=== PATIENT | male | born 1995 | race Two or more races ===

== ENCOUNTER 2016-05-31 22:14 | Observation (INO) | payer OTHER ==
[2016-05-31 22:24] VITALS: BMI 26.2
[2016-05-31] MEDS ORDERED: RAPID SEQUENCE INTUBATION KIT NR ONE (23:06)
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
[2016-05-31] MEDS ORDERED: SODIUM CHLORIDE 1,000 ML IV STA (23:15)
[2016-05-31 23:25] LABS: MCHC 30.9 g/dl (32.0-35.9); MEAN CELL VOLUME 96.3 fl (80-96)
[2016-05-31 23:54] LABS: MCH 29.7 pg (25.7-33.7); MEAN PLT VOLUME 12.8 fl (7.5-11.1); PLATELET COUNT 229 K/MM3 (134-434); RDW 14.2 % (11.9-15.9); WHITE BLOOD COUNT 14.4 K/mm3 (4.0-10.0)
[2016-05-31 23:56] LABS: CALCIUM 9.8 mg/dL (8.5-10.1); CREATININE 1.7 mg/dL (0.7-1.3)
[2016-06-01] MEDS ORDERED: INSULIN REGULAR HUMAN 100 UNITS/ML *VIAL IVPUSH ONE ×2 (00:02→07:15)
[2016-06-01] MEDS ORDERED: INSULIN REGULAR 100 UNITS in SODIUM CHLORIDE 99 ML IVPB SCH (00:15)
[2016-06-01] MEDS ORDERED: INSULIN REGULAR HUMAN 100 UNITS/ML *VIAL ONE ×2 (00:18→12:36)
[2016-06-01 01:25] LABS: ARTERIAL BLOOD GAS pH 7.31 (7.35-7.45)
[2016-06-01 01:26] LABS: ALLENS TEST POSITIVE; ART PUNCT SITE RIGHT RADIAL; ARTERIAL BLOOD GAS BASE EXCESS -3.5 meq/l (-2-2); ARTERIAL BLOOD GAS HCO3 22.5 meq/L (22-26); PT. ON O2? NO; TYPE OF O2 ROOM AIR
[2016-06-01 01:27] LABS: ARTERIAL BLOOD GAS PO2 39.6 mmHg (80-100)
[2016-06-01 02:57] LABS: ALBUMIN 4.2 g/dl (3.4-5.0); ANION GAP 13 (8-16); BILIRUBIN,TOTAL 0.3 mg/dL (0.2-1.0); CALCIUM 9.3 mg/dL (8.5-10.1); CO2 27 mmol/L (21-32); GLUCOSE,RANDOM 253 mg/dL (74-106); SGOT/AST 32 U/L (15-37); SGPT/ALT 55 U/L (12-78); TOT PROT 7.4 g/dl (6.4-8.2)
[2016-06-01 02:58] LABS: ALK PHOS 169 U/L (45-117)
[2016-06-01 02:59] LABS: PLATELET ESTIMATE ADEQUATE (NORMAL)
[2016-06-01] MEDS ORDERED: KCL 10 MEQ IVPB 100 ML IVPB ONE ×3 (03:14→05:15)
[2016-06-01] MEDS: KCL 10 MEQ IVPB 100 ML IVPB SCH ×3 (03:22→05:19)
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
[2016-06-01 04:56] LABS: URINE APPEARANCE CLEAR; URINE BILIRUBIN NEGATIVE (NEGATIVE); URINE BLOOD NEGATIVE (NEGATIVE); URINE COLOR STRAW; URINE GLUCOSE (UA) 3+ (NEGATIVE); URINE KETONE NEGATIVE (NEGATIVE); URINE LEUK ESTERASE NEGATIVE (NEGATIVE); URINE NITRITE NEGATIVE (NEGATIVE); URINE PROTEIN NEGATIVE (NEGATIVE); URINE UROBILINOGEN NEGATIVE E.U./dl (0.2-1.0)
[2016-06-01] MEDS ORDERED: SODIUM CHLORIDE 1,000 ML IV SCH ×2 (05:00→09:00)
[2016-06-01] MEDS ORDERED: SODIUM CHLORIDE 1,000 ML IV STA (07:24)
[2016-06-01 07:48] LABS: ARTERIAL BLD GAS O2 SATURATION 95.6 % (90-98.9); ARTERIAL BLOOD GAS BASE EXCESS -3.5 meq/l (-2-2); ARTERIAL BLOOD GAS HCO3 20.5 meq/L (22-26); ARTERIAL BLOOD GAS pH 7.38 (7.35-7.45)
[2016-06-01 07:50] LABS: ALLENS TEST POSITIVE; ART PUNCT SITE RIGHT RADIAL; LPM/O2% 21%; PT. ON O2? NO; TYPE OF O2 ROOM AIR
[2016-06-01 08:23] LABS: BASOPHIL 0.2 % (0-2.0); EOSINOPHIL 0.1 % (0-4.5); MCH 30.4 pg (25.7-33.7); MCHC 33.2 g/dl (32.0-35.9); MEAN CELL VOLUME 91.5 fl (80-96); MEAN PLT VOLUME 11.8 fl (7.5-11.1); NEUTROPHILS 82.5 % (42.8-82.8); PLATELET COUNT 154 K/MM3 (134-434); RDW 13.3 % (11.9-15.9); WHITE BLOOD COUNT 9.5 K/mm3 (4.0-10.0)
[2016-06-01 09:00] LABS: THYROID STIMULATING HORMONE 19.5 uIU/ml (0.358-3.74)
[2016-06-01 09:01] LABS: CALCIUM 8.5 mg/dL (8.5-10.1); MAGNESIUM 2.4 mg/dL (1.8-2.4); PHOSPHOROUS 1.6 mg/dL (2.5-4.9)
[2016-06-01] MEDS ORDERED: HEPARIN NA (PORCINE) 5,000 UNITS/ML 1ML VIAL SQ SCH (10:00)
--- NOTE | 2016-06-01 10:58 | EKG ---
Test Reason : Blood Pressure : / mmHG Vent. Rate : 086 BPM Atrial Rate : 086 BPM P-R Int : 150 ms QRS Dur : 098 ms QT Int : 352 ms P-R-T Axes : 050 050 014 degrees QTc Int : 421 ms NORMAL SINUS RHYTHM NORMAL ECG NO PREVIOUS ECGS AVAILABLE Confirmed by PHILLIP TINOCO MD ([id number]) on 06/01/2016 10:58:12 AM Referred By: Confirmed By:PHILLIP TINOCO MD
[2016-06-01 11:03] LABS: CALCIUM 8.4 mg/dL (8.5-10.1); CREATININE 0.8 mg/dL (0.7-1.3)
[2016-06-01] MEDS: INSULIN SLIDING SCALE (NOVOLOG) 1 VIAL SQ SCH ×3 (12:00→22:02)
[2016-06-01] MEDS ORDERED: NAPH,MB-DB/K PH,MBDB POWDER PACKET PO ONE (12:00)
[2016-06-01] MEDS: LEVOTHYROXINE NA 50 MCG TABLET (FP) PO SCH (12:25)
[2016-06-01] MEDS ORDERED: LEVOTHYROXINE NA 25 MCG TABLET (FP) ONE (12:25)
[2016-06-01] MEDS ORDERED: POTASSIUM PHOSPHATE 30 MM in SODIUM CHLORIDE 500 ML IVPB ONE (12:30)
[2016-06-01] MEDS: SODIUM CHLORIDE 1,000 ML IV SCH (12:40)
[2016-06-01 12:41] LABS: FREE T4 1.19 ng/dl (0.76-1.16)
[2016-06-01 14:13] LABS: CALCIUM 8.7 mg/dL (8.5-10.1); CREATININE 0.9 mg/dL (0.7-1.3)
[2016-06-01] MEDS ORDERED: PNEUMOC 13-VAL CONJ-DIP CRM/PF 0.5 ML DISP.SYRIN IM ONE (15:26)
[2016-06-01] MEDS: INSULIN (NOVOLOG) ASPART 100 UNITS/ML 10ML VIAL SQ SCH (17:31)
[2016-06-01] MEDS ORDERED: PNEUMOCOCCAL 23 VACCINE 0.5 ML VIAL IM ONE (17:45)
--- NOTE | 2016-06-01 18:52 | HOSP ---
Physical Examination Vital Signs: Vital Signs Temperature 98.2 F 06/01/16 17:00 Pulse Rate 96 H 06/01/16 17:00 Respiratory Rate 18 06/01/16 17:00 Blood Pressure 127/82 06/01/16 17:00 O2 Sat by Pulse Oximetry (%) 97 06/01/16 09:57 Constitutional: Yes: Well Nourished Eyes: Yes: WNL HENT: Yes: WNL Neck: Yes: WNL Cardiovascular: Yes: Regular Rate and Rhythm, S1, S2 Respiratory: Yes: Regular, CTA Bilaterally Gastrointestinal: Yes: Normal Bowel Sounds, Soft Edema: No Peripheral Pulses WNL: Yes Integumentary: Yes: WNL Neurological: Yes: Alert, Oriented, Cran Nerves II-XII Intact, Pre-Existing Deficit Labs: CBC, BMP 06/01/16 08:00 06/01/16 13:45 Hospitalist Encounter Assessment: Assessment: 21 year old male with MR, Autism, Bipolar, Congenital Hypothyroidism , admitted with early DKA and agitation, aggressive behavior at [facility]. Plan: 1. Early DKA - In Mar 2014 pt was diagnosed with JANIS - Seen by Dr. Thornton placed on levemir 25 BID at that time - Initially admitted with Anion Gap, since closed - Per home records, pt takes 14 units HS levemir, will continue - Will continue, novolog 4 units with meals - Will decrease insulin sliding scale from med rec, will evaluated per BGMs - Continue IVF 100cc/hr - Start diabetic diet - Hgb a1c 9.1 2. Hypothyroidism - Likely cause of agitation - TSH elevated - Free t4 elevated - Will increase synthroid to 50mcg daily - Recheck in 6 weeks 3. Bipolar - Clozaril pending; medication is a REM medication per pharmacy, will need outside member to bring in - Have placed calls to [facility], father, and mother without success - Will call again tomorrow - Continue [place] carbonate 3. Hypokalemia - Resolved 4. Hypophosphatemia - Replete 15mm - Check levels in AM Dispo: - If sugars controlled, will dc tomorrow
[2016-06-01] MEDS ORDERED: PT OWN MED DRAWER 7, Y5N ONE (21:01)
[2016-06-01] MEDS ORDERED: INSULIN DETEMIR 100 UNITS/ML MDV SQ SCH (22:00)
[2016-06-01] MEDS ORDERED: cloZAPine 25 MG TABLET PO ONE (22:00)
[2016-06-01] MEDS ORDERED: LITHIUM CARBONATE 150 MG CAPSULE PO SCH (22:00)
[2016-06-01] MEDS ORDERED: cloZAPine 25 MG TABLET PO SCH (22:00)
[2016-06-02] MEDS: SODIUM CHLORIDE 1,000 ML IV SCH ×2 (01:15→12:32)
[2016-06-02 06:06] LABS: LITHIUM 0.2 mmol/L (0.6-1.4)
[2016-06-02] MEDS: LEVOTHYROXINE NA 50 MCG TABLET (FP) PO SCH (06:32)
[2016-06-02] MEDS: INSULIN SLIDING SCALE (NOVOLOG) 1 VIAL SQ SCH ×2 (06:33→12:30)
[2016-06-02] MEDS: INSULIN (NOVOLOG) ASPART 100 UNITS/ML 10ML VIAL SQ SCH ×2 (06:33→12:31)
[2016-06-02] MEDS ORDERED: LITHIUM CARBONATE 300 MG CAPSULE (FP) PO SCH (10:00)
[2016-06-02 10:05] LABS: CALCIUM 8.6 mg/dL (8.5-10.1); CREATININE 0.6 mg/dL (0.7-1.3); PHOSPHOROUS 3.1 mg/dL (2.5-4.9)
[2016-06-02] MEDS ORDERED: PT OWN MED DRAWER 7, Y5N ONE (11:04)
[2016-06-02] MEDS ORDERED: INSULIN DETEMIR 100 UNITS/ML MDV SQ ONE (11:57)
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
[2016-06-02 12:38] VITALS: BP 130/60; PULSE 68; TEMP 98.4
== END 2016-06-02 14:49 | disposition home or self-care (01) ==
LOC: JERFT 22:14 → INTOOBSV 06-01 03:23 → JERBED 06-01 03:23 → J8W 06-01 16:57
PROVIDERS: ADMIT Internal Medicine; ATTEND Nurse Practitioner Acute Care
DX: E10.10 Type 1 diabetes mellitus with ketoacidosis without coma (principal); F31.9 Bipolar disorder, unspecified; E03.1 Congenital hypothyroidism without goiter; F84.0 Autistic disorder; E87.6 Hypokalemia; F79 Unspecified intellectual disabilities; Z79.4 Long term (current) use of insulin; E83.39 Other disorders of phosphorus metabolism
CPT/HCPCS: 36415; 36600; 71010-TC; 80048; 80053; 80178; 81003; 82009; 82803; 83036; 83605; 83735; 84100; 84439; 84443; 84481; 85025; 87086; 90732; 93005; 93010; 99285-25; G0009; G0378

== ENCOUNTER 2017-10-13 15:58 | Emergency (ER) | payer OTHER ==
[2017-10-13 16:06] VITALS: BP 142/84; PULSE 88; TEMP 98.3; BMI 33.3
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
== END 2017-10-13 17:45 | disposition home or self-care (01) ==
LOC: JERFT 15:58
DX: Z04.1 Encounter for examination and observation following transport accident (principal); V77.1XXA Passenger on bus injured in collision with fixed or stationary object in nontraffic accident, initial encounter; Y93.89 Activity, other specified; Y92.118 Other place in children's home and orphanage as the place of occurrence of the external cause; Y99.0 Civilian activity done for income or pay; F31.89 Other bipolar disorder; F71 Moderate intellectual disabilities; F84.0 Autistic disorder; E11.9 Type 2 diabetes mellitus without complications; Z79.4 Long term (current) use of insulin
CPT/HCPCS: 70450-TC; 99281-25

== ENCOUNTER 2018-04-23 23:26 | Emergency (ER) | payer OTHER ==
[2018-04-23 23:58] VITALS: BMI 27.3
[2018-04-24] MEDS ORDERED: SODIUM CHLORIDE 0.9% 500 ML INFUS.BAG IV ONE ×3 (00:06→05:36)
[2018-04-24 00:25] LABS: VENOUS PC02 41.9 mmHg (38-52); VENOUS PH 7.44 (7.32-7.42); VENOUS PO2 56.3 mmHg (28-48)
[2018-04-24 00:26] LABS: BASO % 0.4 % (0-2.0); EOS % 0.1 % (0-4.5); HEMATOCRIT 41.6 % (35.4-49); HEMOGLOBIN 14.5 GM/dL (11.7-16.9); LYMPH % 21.7 % (8-40); MCH 30.3 pg (25.7-33.7); MCHC 34.9 g/dl (32.0-35.9); MEAN CELL VOLUME 86.9 fl (80-96); MEAN PLT VOLUME 11.1 fl (7.5-11.1); MONO % 6.6 % (3.8-10.2); NEUT % 71.2 % (42.8-82.8); PLATELET COUNT 201 K/MM3 (134-434); RDW 13.2 % (11.9-15.9); WHITE BLOOD COUNT 9.7 K/mm3 (4.0-10.0)
[2018-04-24 00:40] LABS: URINE APPEARANCE CLEAR; URINE BILIRUBIN NEGATIVE (<2.0 mg/dL); URINE COLOR COLORLESS; URINE GLUCOSE (UA) 3+ (NEGATIVE); URINE KETONE NEGATIVE (NEGATIVE); URINE LEUK ESTERASE NEGATIVE (NEGATIVE); URINE NITRITE NEGATIVE (NEGATIVE); URINE PROTEIN NEGATIVE (NEGATIVE); URINE UROBILINOGEN NEGATIVE mg/dL (0.2-1.0)
[2018-04-24 00:50] LABS: ALBUMIN 3.8 g/dl (3.4-5.0); ALK PHOS 227 U/L (45-117); ANION GAP 10 MMOL/L (8-16); BILIRUBIN,TOTAL 0.2 mg/dL (0.2-1); BLOOD UREA NITROGEN 15 mg/dL (7-18); CALCIUM 9.3 mg/dL (8.5-10.1); CHLORIDE 95 mmol/L (98-107); CO2 28 mmol/L (21-32); CREATININE 1.2 mg/dL (0.55-1.3); POTASSIUM 3.6 mmol/L (3.5-5.1); SGOT/AST 62 U/L (15-37); SGPT/ALT 104 U/L (13-61); SODIUM 132 mmol/L (136-145); TOT PROT 7.5 g/dl (6.4-8.2)
[2018-04-24 00:51] LABS: GLUCOSE,RANDOM 495 mg/dL (74-106)
--- NOTE | 2018-04-24 01:07 | PDOC ---
History of Present Illness - General Chief Complaint: Blood Sugar Problem Stated Complaint: BLOOD PRESSURE PROBLEM Time Seen by Provider: 04/24/18 00:05 History Source: Care Provider, EMS Exam Limitations: No Limitations - History of Present Illness Initial Comments: 04/24/18 00:57 Patient is a 23 year old male from [facility], h/o autism, bipolar, hypomania, brought for elevated blood sugar. Per transfer papers patient had FS of 543 at 3:30 pm, 20 units of Novolog given, BS at 9:30 pm was HI. Basaglar 54 units given at 10:30 pm FS still HI, urine ketone neg. Patient is verbal c/o epigstric pain. request to call PMD with report [phone] PMD: Dr. Etienne [phone] PMHX: as above PSOCHX: lives in a halfway ALL: NKDA GENERAL/CONSTITUTIONAL: [No fever or chills. No weakness. No weight change.] HEAD, EYES, EARS, NOSE AND THROAT: [No change in vision. No ear pain or discharge. No sore throat.] CARDIOVASCULAR: [No chest pain or shortness of breath.] RESPIRATORY: [No cough, wheezing, or hemoptysis.] GASTROINTESTINAL: [No nausea, vomiting, diarrhea or constipation. No rectal bleeding.] GENITOURINARY: [No dysuria, frequency, or change in urination.] MUSCULOSKELETAL: [No joint or muscle swelling or pain. No neck or back pain.] SKIN AND BREASTS: [No rash or easy bruising.] NEUROLOGIC: [No headache, vertigo, loss of consciousness, or loss of sensation.] PSYCHIATRIC: [No depression or anxiety.] ENDOCRINE: [No increased thirst. No abnormal weight change.] HEMATOLOGIC/LYMPHATIC: [No anemia, easy bleeding, or history of blood clots.] ALLERGIC/IMMUNOLOGIC: [No hives or skin allergy. No latex allergy.] GENERAL: [The patient is awake, alert, and fully oriented, in no acute distress. ] HEAD: [Normal with no signs of trauma.] EYES: [Pupils equal, round and reactive to light, extraocular movements intact, sclera anicteric, conjunctiva clear.] ENT: [Ears normal, nares patent, oropharynx clear without exudates. Moist mucous membranes.] NECK: [Normal range of motion, supple without lymphadenopathy, JVD, or masses.] LUNGS: [Breath sounds equal, clear to auscultation bilaterally. No wheezes, and no crackles.] HEART: [Regular rate and rhythm, normal S1 and S2 without murmur, rub.] ABDOMEN: [Soft, mild tenderness epigastrum, normoactive bowel sounds. No guarding, no rebound. No masses.] EXTREMITIES: [Normal range of motion, no edema. No clubbing or cyanosis. No cords, erythema, or tenderness.] NEUROLOGICAL: [Cranial nerves II through XII grossly intact. Normal speech, normal gait.] PSYCH: [Normal mood, normal affect.] SKIN: [Warm, Dry, normal turgor, no rashes or lesions noted.] Past History - Past Medical History Allergies/Adverse Reactions: Allergies Allergy/AdvReac Type Severity Reaction Status Date / Time shellfish derived Allergy Verified 04/23/18 23:58 Home Medications: Ambulatory Orders Cholecalciferol (Vitamin D3) [Vitamin D3] 1,000 unit PO DAILY 11/23/15 Clozapine [Clozaril] 25 mg PO BID 11/23/15 Fluvoxamine Maleate [Fluvoxamine Maleate ER] 100 mg PO BID 11/23/15 Insulin Detemir [Levemir Flextouch] 10 unit SQ ACBK 11/23/15 [place] Carbonate [Eskalith -] 300 mg PO BID 11/23/15 Melatonin 3 mg PO DAILY 11/23/15 Insulin (Levemir) [Levemir Flexpen -] 14 units SQ HS 06/01/16 Insulin Aspart [Novolog Flexpen] 100 unit SQ ASDIR PRN #0 06/02/16 Cholecalciferol (Vitamin D3) [Vitamin D3 -] 2,000 unit PO BID 04/24/18 Levothyroxine [Synthroid -] 75 mcg PO DAILY@0700 04/24/18 [place]-3 Fatty Acids/Fish Oil [Fish Oil 1,000 mg Capsule] 2 each PO BID 04/24/18 COPD: No Diabetes: Yes Psychiatric Problems: Yes (BIPOLAR/MANIC/AUTISTIC) Thyroid Disease: Yes (congenital hypothyroidism) - Immunization History Immunization Up to Date: Yes - Suicide/Smoking/Psychosocial Hx Smoking History: Never smoked Have you smoked in the past 12 months: No Number of Cigarettes Smoked Daily: 0 Information on smoking cessation initiated: No Hx Alcohol Use: No Drug/Substance Use Hx: No Substance Use Type: None *Physical Exam - Vital Signs Last Vital Signs Temp Pulse Resp BP Pulse Ox 98.3 F 114 H 18 134/90 98 04/23/18 23:47 04/23/18 23:47 04/23/18 23:47 04/23/18 23:47 04/23/18 23:47 Moderate Sedation - Procedure Monitoring Vital Signs: Procedure Monitoring Vital Signs Temperature 98.3 F 04/23/18 23:47 Pulse Rate 114 H 04/23/18 23:47 Respiratory Rate 18 04/23/18 23:47 Blood Pressure 134/90 04/23/18 23:47 O2 Sat by Pulse Oximetry (%) 98 04/23/18 23:47 ED Treatment Course - LABORATORY CBC & Chemistry Diagram: 04/24/18 00:10 04/24/18 00:10 - ADDITIONAL ORDERS Additional order review: Laboratory Results 04/24/18 04/24/18 04/24/18 00:28 00:10 00:10 VBG pH 7.44 H POC VBG pCO2 41.9 POC VBG pO2 56.3 H D Mixed VBG HCO3 27.6 H Sodium 132 L Potassium 3.6 Chloride 95 L Carbon Dioxide 28 Anion Gap 10 BUN 15 Creatinine 1.2 Creat Clearance w eGFR > 60 Random Glucose 495 H* Calcium 9.3 Total Bilirubin 0.2 AST 62 H ALT 104 H Alkaline Phosphatase 227 H Total Protein 7.5 Albumin 3.8 Urine Color Colorless Urine Appearance Clear Urine pH 7.0 Ur Specific [place] 1.014 Urine Protein Negative Urine Glucose (UA) 3+ H Urine Ketones Negative Urine Blood Negative Urine Nitrite Negative Urine Bilirubin Negative Urine Urobilinogen Negative Ur Leukocyte Esterase Negative 04/24/18 00:10 RBC 4.80 MCV 86.9 MCHC 34.9 RDW 13.2 MPV 11.1 Neutrophils % 71.2 Lymphocytes % 21.7 D Monocytes % 6.6 Eosinophils % 0.1 Basophils % 0.4 - Medications Given in the ED: ED Medications Discontinued Medications Generic Name Dose Route Start Last Admin Trade Name Freq PRN Reason Stop Dose Admin Sodium Chloride 1,000 ml 04/24/18 00:06 04/24/18 00:22 Normal Saline - IV 04/24/18 00:07 1,000 ml ONCE ONE Administration Sodium Chloride 1,000 ml 04/24/18 00:07 04/24/18 00:31 Normal Saline - IV 04/24/18 00:08 1,000 ml ONCE ONE Administration Medical Decision Making - Medical Decision Making 04/24/18 00:57 Patient is a 23 year old male from [facility], h/o autism, bipolar, hypomania, brought for elevated blood sugar. Per transfer papers patient had FS of 543 at 3:30 pm, 20 units of Novolog given, BS at 9:30 pm was HI. Basaglar 54 units given at 10:30 pm FS still HI, urine ketone neg. Patient nonverbal. 04/24/18 01:09 Laboratory Tests 04/24/18 04/24/18 00:10 00:10 VBG pH 7.44 H POC VBG pCO2 41.9 POC VBG pO2 56.3 H D Mixed VBG HCO3 27.6 H Sodium 132 L Potassium 3.6 Chloride 95 L Carbon Dioxide 28 Anion Gap 10 BUN 15 Creatinine 1.2 Random Glucose 495 H* 04/24/18 02:22 Patient Full Name: CELINE CASTELLON Patient Accession No: [id number] Patient : 1995 Reason for Exam: ruq and epigastric pain Referring Physician: Patient Name: CANDE BERGER THIS IS A PRELIMINARY REPORT FROM [facility] DATE OF SERVICE: 2018-04-24 01:25:24 IMAGES: [id number] EXAM: ABDOMEN US -LIMITED HISTORY: Right upper quadrant and epigastric pain COMPARISON: None. FINDINGS: Scan is limited due to large body habitus and respiration. Gallbladder is grossly normal. No stones are seen. No obvious abnormalities. No gallbladder wall thickening. No pericholecystic fluid. Normal common bile duct at 3 mm. Liver is normal sized but heterogeneous in appearance. It represent heterogeneous fatty infiltration. No right hydronephrosis. No right upper quadrant free fluid. THIS DOCUMENT HAS BEEN ELECTRONICALLY SIGNED Maurice Kay MD 04/24/2018 02:02 [place] Smith Please call [facility] [phone]) with questions. FS 387 INTERPRETING RADIOLOGIST: Maurice Kay MD Electronically Signed: Apr 24, 2018 02:03AM [place] 04/24/18 05:12 Patient Full Name: CELINE CASTELLON Patient Accession No: [id number] Patient : 1995 Reason for Exam: ABD PAIN Referring Physician: Patient Name: CANDE BERGER THIS IS A PRELIMINARY REPORT FROM [facility] DATE OF SERVICE: 2018-04-24 04:19:59 IMAGES: [id number] EXAM: CT ABDOMEN AND PELVIS WITH CONTRAST No bowel obstruction, colitis, free fluid or free air. Normal appendix. Unremarkable pancreas, kidneys and gallbladder. Hepatosplenomegaly. Mosaic attenuation left greater than right lung bases, possibly due to obstructive small airways disease. One or more of the following dose reduction techniques were used: automated exposure control, adjustment of the mA and/or kV according to patient size, use of iterative reconstructive technique. THIS DOCUMENT HAS BEEN ELECTRONICALLY SIGNED Jane Rogers M.D. 04/24/2018 04:52 [place] Smith Please call [facility] [phone] with questions. INTERPRETING RADIOLOGIST: Jane Rogers MD Electronically Signed: Apr 24, 2018 04:52AM EST FS 325 will continue fluid and give Regular insulin 6 unitis 04/24/18 06:57 FS 205 will discharge 04/24/18 07:11 Case d/w pmd Dr. Etienne she agrees with plan to discharge back to the facility. States that the liver enzymes were elevated and is being evaluated currently. I discussed the physical exam findings, ancillary test results and final diagnoses with the patient. I answered all of the patient's questions. The patient was satisfied with the care received and felt comfortable with the discharge plan and treatment plan. The Patient agrees to follow up with the primary care physician within 24-72 hours. *DC/Admit/Observation/Transfer Diagnosis at time of Disposition: Hyperglycemia due to type 1 diabetes mellitus, Transaminitis - Discharge Dispostion Disposition: HOME Condition at time of disposition: Stable - Referrals - Patient Instructions Additional Instructions: I discussed the physical exam findings, ancillary test results and final diagnoses with the patient. I answered all of the patient's questions. The patient was satisfied with the care received and felt comfortable with the discharge plan and treatment plan. The Patient agrees to follow up with the primary care physician within 24-72 hours. Follow-up needed for elevated liver enzymes. - Post Discharge Activity Forms/Work/School Notes: Back to School, Back to Work
--- NOTE | 2018-04-24 01:32 | PDOC ---
*Physical Exam - Vital Signs Last Vital Signs Temp Pulse Resp BP Pulse Ox 98.3 F 114 H 18 134/90 98 04/23/18 23:47 04/23/18 23:47 04/23/18 23:47 04/23/18 23:47 04/23/18 23:47 - Physical Exam General Appearance: Yes: Nourished Neck: positive: Trachea midline Respiratory/Chest: positive: Lungs Clear, Normal Breath Sounds Cardiovascular: positive: Regular Rhythm, Regular Rate, S1, S2 Gastrointestinal/Abdominal: positive: Normal Bowel Sounds, Tender (epigastric ttp. ) Musculoskeletal: negative: CVA Tenderness Extremity: positive: Normal Capillary Refill, Normal Inspection Integumentary: positive: Normal Color, Dry, Warm Neurologic: positive: Alert, Normal Mood/Affect ED Treatment Course - LABORATORY CBC & Chemistry Diagram: 04/24/18 00:10 04/24/18 00:10 - ADDITIONAL ORDERS Additional order review: Laboratory Results 04/24/18 04/24/18 04/24/18 00:28 00:10 00:10 VBG pH 7.44 H POC VBG pCO2 41.9 POC VBG pO2 56.3 H D Mixed VBG HCO3 27.6 H Sodium 132 L Potassium 3.6 Chloride 95 L Carbon Dioxide 28 Anion Gap 10 BUN 15 Creatinine 1.2 Creat Clearance w eGFR > 60 Random Glucose 495 H* Calcium 9.3 Total Bilirubin 0.2 AST 62 H ALT 104 H Alkaline Phosphatase 227 H Total Protein 7.5 Albumin 3.8 Urine Color Colorless Urine Appearance Clear Urine pH 7.0 Ur Specific [place] 1.014 Urine Protein Negative Urine Glucose (UA) 3+ H Urine Ketones Negative Urine Blood Negative Urine Nitrite Negative Urine Bilirubin Negative Urine Urobilinogen Negative Ur Leukocyte Esterase Negative 04/24/18 00:10 RBC 4.80 MCV 86.9 MCHC 34.9 RDW 13.2 MPV 11.1 Neutrophils % 71.2 Lymphocytes % 21.7 D Monocytes % 6.6 Eosinophils % 0.1 Basophils % 0.4 - Medications Given in the ED: ED Medications Discontinued Medications Generic Name Dose Route Start Last Admin Trade Name Freq PRN Reason Stop Dose Admin Sodium Chloride 1,000 ml 04/24/18 00:06 04/24/18 00:22 Normal Saline - IV 04/24/18 00:07 1,000 ml ONCE ONE Administration Sodium Chloride 1,000 ml 04/24/18 00:07 04/24/18 00:31 Normal Saline - IV 04/24/18 00:08 1,000 ml ONCE ONE Administration Medical Decision Making - Medical Decision Making 04/24/18 01:29 23 yo male h;/o bipolar, autism, in jail here with elevated blood sugar. denies nv no f/c no cough. is c/o epigastric abd pain. was given novoloag and lantus prior to arrival. on exam mild epigastric ttp. otherwise unremarkable. will bryceley require admission for elevated sugars. differential dka, dehyration underlying infection such as uti, cholelithiasis, cholecystitis pancreatitis. plan labs ivf us ruq, lipase reassess. pt seen and examined in conjunction with PA agree with plan
[2018-04-24 01:56] LABS: AMYLASE 23 U/L (25-115); LIPASE 118 U/L (73-393)
[2018-04-24] MEDS ORDERED: INSULIN REGULAR HUMAN 100 UNITS/ML *VIAL IVPUSH ONE (05:41)
[2018-04-24] MEDS ORDERED: INSULIN NPH 100 UNITS/ML *VIAL ONE (05:50)
[2018-04-24 07:29] VITALS: BP 137/83; PULSE 97; TEMP 98.2
== END 2018-04-24 07:29 | disposition home or self-care (01) ==
LOC: JER 23:26
PROC: 3E0337Z Introduction of Electrolytic and Water Balance Substance into Peripheral Vein, Percutaneous Approach (ICD-10-PCS; principal; 2018-04-23)
PROC: 3E033VG Introduction of Insulin into Peripheral Vein, Percutaneous Approach (ICD-10-PCS; 2018-04-23)
DX: R74.0 Nonspecific elevation of levels of transaminase and lactic acid dehydrogenase [LDH] (principal); R73.9 Hyperglycemia, unspecified; F31.9 Bipolar disorder, unspecified; F84.0 Autistic disorder
CPT/HCPCS: 36415; 71046-TC-FY; 74177-TC; 76705-TC; 80053; 81003; 82150; 82803; 82962; 83690; 85025; 99282-25